=== PATIENT | female | born 1950 | race Caucasian/White ===

== ENCOUNTER 2018-08-13 14:35 | Inpatient (IN) ==
[2018-08-13] MEDS ORDERED: *HR* OxyCODONE Immed Rel 5 MG TABLET PO PRN (20:21)
[2018-08-13] MEDS: Sennosides/Docusate Sodium TABLET PO SCH (21:23)
[2018-08-13] MEDS: *HR* OxyCODONE Immed Rel 5 MG TABLET PO PRN (21:23)
[2018-08-13] MEDS: Gabapentin 300 MG CAPSULE PO SCH (21:23)
[2018-08-14] MEDS: *HR* OxyCODONE Immed Rel 5 MG TABLET PO PRN (05:32)
[2018-08-14 06:06] LABS: Basophils % 0.2 %; Eosinophils # 0.2 K/mcL (0.0-0.6); Hematocrit 24.8 % (35.3-44.9); Hemoglobin 8.5 g/dL (11.5-15.4); Immature Granulocytes % 0.4 % (0-4); Lymphocytes # 0.8 K/mcL (0.6-4.6); Lymphocytes % 15.1 %; Mean Corpuscular HGB Conc 34.3 g/dL (31.6-35.5); Mean Corpuscular Hemoglobin 33.2 pg (28.0-33.3); Mean Corpuscular Volume 96.9 fL (83.0-100.0); Mean Platelet Volume 11.6 fL (9.4-12.4); Monocytes # 0.6 K/mcL (0.0-1.3); Monocytes % 11.3 %; Neutrophils # 3.7 K/mcL (1.6-8.9); Platelet Count 117 K/mcL (140-400); Red Blood Count 2.56 M/mcL (3.82-4.97); Red Cell Distribution Width 12.5 % (11.5-14.5)
[2018-08-14 06:09] LABS: INR 1.1; Prothrombin Time 12.3 Seconds (9.4-12.1)
[2018-08-14 06:11] LABS: Activated Partial Thrombo Time 27.9 Seconds (26.0-36.0)
[2018-08-14 06:20] LABS: BUN/Creatinine Ratio 20 (6-26); Blood Urea Nitrogen 12 mg/dL (8-23); Calcium 8.1 mg/dL (8.6-10.3); Carbon Dioxide 26 mEq/L (23-29); Chloride 104 mEq/L (98-107); Glucose 111 mg/dL (70-105); Osmolality,Calculated 284 (280-300); Potassium 3.6 mEq/L (3.5-5.1); Sodium 137 mEq/L (136-145); eGFR For Non-African Americans > 60 (> 60)
[2018-08-14] MEDS ORDERED: Ondansetron ODT 4 MG TAB.RAPDIS SL PRN (07:56)
--- NOTE | 2018-08-14 09:07 | Internal Med History&Physical ---
Date of Encounter: 08/14/18 Time of Encounter: 09:05 Assessment and Plan (1) Status post knee surgery Current visit: Yes Status: Acute S?P surgery , here for PT/OT wound is stable pain is well controlled . Adjsut pain meds and add meds for constipation stable (2) HTN (hypertension) Current visit: Yes Status: Acute Stable continue meds followup and adjust Qualifiers: Hypertension type: essential hypertension Qualified Code(s): I10 - Essential (primary) hypertension (3) Hypothyroid Current visit: Yes Status: Acute On meds asymptomatic at the present time will order TSH Qualifiers: Hypothyroidism type: unspecified Qualified Code(s): E03.9 - Hypothyroidism , unspecified (4) Nausea & vomiting Current visit: Yes Status: Acute Havng some nausea and few small bouts of vomiting. On Antiemetic prn , she is taking Opioid and is constipated as well . Symptomatic medications followup Qualifiers: Vomiting type: unspecified Vomiting Intractability: non-intractable Qualified Code(s): R11.2 - Nausea with vomiting, unspecified Internal Medicine - H&P: HPI Chief complaint: s/p Rt Knee replacemement Admitted From: Hospital to Hospital Transfer History of present illness: Ms. Vargas is a 68 year old female hx of Hypothyroid, HTN and chronic pain who was admitted for rehab s/p Right Knee surgery. Today this moorings is complaining of Nausea and had few small bouts of vomiting . No fever or chill no chest pain .No complains urinary symptoms . Her pain in her knee is well controlled overall she feels OK expcet for her knee surgery Past Med Surg Social Fam HX - Past Medical History Medical history: GERD, GI bleed, hypertension, thyroid disease Psychiatric history: no psych history - Past Surgical History Surgical History: cholecystectomy, hysterectomy, knee replacement Additional surgical history: GASTRIC BYPASS - Social History Smoking Status: Never smoker Smokeless Tobacco Status: No Alcohol use: none Drug use: none - Family History Son Adopted: [place]: Dale vargas Age: 36 Twin of Family Member: Yes, Fraternal Living Status: Still Living Hx Family Cardiac Disorders: Yes Hx Family Respiratory Disorders: No Hx Family Cancer: No Hx Family GI Disorders: No Hx Family Genitourinary Disorders: No Hx Family Endocrine Disorder: No Hx Family Musculoskeletal Disorders: No Hx Family Neuromuscular Disorders: No Hx Family Neurologic Disorders: No Hx Family HEENT Disorders: No Hx Family Autoimmune Disorders: No Hx Family Reproductive Disorders: No Hx Family Psychosocial Disorders: No Hx Family Medical Disorders: No Internal Medicine - H&P: Meds Gabapentin [Neurontin] 600 mg PO TID 07/08/16 [History] Lansoprazole [Prevacid] 30 mg PO BID 07/08/16 [History] Levothyroxine [Synthroid] 88 mcg PO DAILY 07/08/16 [History] Metoprolol [Lopressor] 50 mg PO DAILY 07/08/16 [History] Potassium Chloride [Klor-Con Sprinkle] 10 meq PO BID 07/08/16 [History] Ranitidine HCl [Zantac] 300 mg PO DAILY 07/08/16 [History] Oxycodone HCl [Roxybond] 5 mg PO Q4H PRN 08/13/18 [History] Oxycodone HCl [Roxybond] 10 mg PO Q4H PRN 08/13/18 [History] Vit Calc,Iron,Folic 1 PO DAILY 08/13/18 [History] Rivaroxaban [Xarelto] 10 mg PO DAILY 08/13/18 [History] Sennosides/Docusate Sodium [Docusate Sodium-Senna Tablet] 1 tab PO BID 08/13/18 [History] 3 Allergy/AdvReac Type Severity Reaction Status Date / Time aspirin [ASA] Allergy Abdominal Verified 08/13/18 19:58 Pain naproxen Allergy Abdominal Verified 08/13/18 19:58 Pain All Systems PM: A 10-system review of systems was performed and is negative for pertinent findings except as documented above in the HPI. - Constitutional Constitutional: no anorexia, no chills, no excessive sweating, no fatigue, no fever(s), no falls, no malaise, no night sweats, no weakness - EENT Eyes: no blurry vision, no discharge, no itchy eyes, no photophobia, no spots in vision Ears: no ear discharge Nose, mouth and throat: no bleeding gums, no dry mouth, no dysphagia, no epistaxis, no facial pain, no hoarseness, no mouth lesions, no odynophagia, no sinus pressure, no sore throat, no throat swelling - Cardiovascular Cardiovascular ROS IM: no chest pain, no claudication, no diaphoresis, no dyspnea, no irregular heart rhythm, no lightheadedness, no orthopnea, no palpitations, no paroxysmal nocturnal dyspnea, no syncope - Respiratory Respiratory: no cough, no dyspnea, no hemoptysis, no dyspnea on exertion, no wheezing, no snoring, no chest congestion, no excessive phlegm production, no change in phlegm color, no pain with cough - Gastrointestinal Gastrointestinal: belching, constipation, nausea, no abdominal pain, no bloating , no change in bowel habits, no cramping, no diarrhea, no dyspepsia, no dysphagia, no excessive flatus, no heartburn, no hematemesis, no loose stools, no melena - Genitourinary Genitourinary: no urinary hesitancy, no urinary incontinence, no urinary urgency , no vaginal discharge - Musculoskeletal Musculoskeletal ROS IM: arthralgias, no muscle cramps, no muscle weakness, no myalgias, no neck pain, no numbness, no stiffness, no tingling - Neurological Neurological ROS: no dizziness, no focal weakness, no radicular pain, no restless legs, no tingling, no tremor(s) - Psychiatric Psychiatric: no homicidal ideation, no suicidal ideation - Constitutional Vitals: Temp Pulse Resp BP Pulse Ox 99.1 F 87 18 138/67 92 08/14/18 07:25 08/14/18 07:25 08/14/18 07:25 08/14/18 07:25 08/14/18 07:25 General appearance: Present: A&O X 3, pleasant, no acute distress, answers questions appropriately. Absent: cachectic Exam: having some Nausea and feels tired - Head Head exam: Present: atraumatic - Eye Eye exam: Present: EOMI, PERRL Pupils: Present: PERRL - Neck Neck exam general surgery: Present: full ROM, supple. Absent: tenderness, nuchal rigidity - Respiratory Respiratory exam: Present: CTAB. Absent: prolonged expiratory phase, rales, respiratory distress, rhonchi, stridor, wheezes, tachypnea - Cardiovascular Cardiovascular exam: Present: RRR, +S1, +S2. Absent: diastolic murmur, gallop, irregular rhythm, JVD - GI/Abdominal GI/Abdominal exam: Present: normal bowel sounds, soft. Absent: distended, firm , guarding, rebound, rigid, tenderness - Extremities Exam Extremities exam: Absent: pedal edema, tenderness, warm Additional comments: s/p surgery right knee - Incison Incision: Present: clean and dry, intact. Absent: draining, red, swollen - Neurological Exam Neurological exam: Present: CN II-XII intact, oriented X3, no focal deficits. Absent: facial droop, speech deficit Internal Med - H&P Results - Labs CBC & Chem 7: 08/14/18 05:35 08/14/18 05:35 Labs: Short CBC 08/14/18 Range/Units 05:35 WBC 5.3 (4.3-11.1) K/mcL Hgb 8.5 L (11.5-15.4) g/dL Hct 24.8 L (35.3-44.9) % Plt Count 117 L (140-400) K/mcL Neutrophils # 3.7 (1.6-8.9) K/mcL BMP 08/14/18 05:35 Sodium 137 Potassium 3.6 Chloride 104 Carbon Dioxide 26 BUN 12 Creatinine 0.61 Glucose 111 H Calcium 8.1 L - VTE Documentation of Mechanical Device: Graduated compression elastic hosiery
[2018-08-14] MEDS: Sennosides/Docusate Sodium TABLET PO SCH ×2 (10:38→20:31)
[2018-08-14] MEDS: Famotidine 20 MG TABLET PO SCH (10:39)
[2018-08-14] MEDS: *HR* Rivaroxaban 10 MG TABLET PO SCH (10:39)
[2018-08-14] MEDS: Gabapentin 300 MG CAPSULE PO SCH ×3 (10:39→20:30)
[2018-08-14] MEDS: Acetaminophen 325 MG TABLET PO PRN (14:10)
[2018-08-15] MEDS: *HR* OxyCODONE Immed Rel 5 MG TABLET PO PRN ×3 (05:30→20:41)
--- NOTE | 2018-08-15 08:28 | Internal Med Progress Note ---
Date of Encounter: 08/15/18 Time of Encounter: 08:26 - Assessment and plan (1) Status post knee surgery Current Visit: Yes Status: Acute Assessment and plan: stable wound healing slowly getting PT (2) HTN (hypertension) Current Visit: Yes Status: Acute Assessment and plan: stable no new change continue to monitor Qualifiers: Hypertension type: essential hypertension Qualified Code(s): I10 - Essential (primary) hypertension (3) Hypothyroid Current Visit: Yes Status: Acute Assessment and plan: stable on meds no new change TSH pending Qualifiers: Hypothyroidism type: unspecified Qualified Code(s): E03.9 - Hypothyroidism , unspecified (4) Nausea & vomiting Current Visit: Yes Status: Acute Assessment and plan: almost resolved able to eat well will continue to follow Qualifiers: Vomiting type: unspecified Vomiting Intractability: non-intractable Qualified Code(s): R11.2 - Nausea with vomiting, unspecified - Subjective Interval history: Followup Slept well her nausea has improved a lot and she feels much better still feels constipated and feels that suppositories usuall help the best no fever or chill . - Constitutional Vitals: Temp Pulse Resp BP Pulse Ox 99.5 F 79 16 114/80 93 08/15/18 06:56 08/15/18 06:56 08/15/18 06:56 08/15/18 06:56 08/15/18 06:56 General appearance: Present: A&O X 3, pleasant, no acute distress, answers questions appropriately. Absent: cachectic - Head Head exam: Present: atraumatic - Eye Eye exam: Present: EOMI, PERRL Pupils: Present: PERRL - Neck Neck exam general surgery: Present: supple. Absent: tenderness, nuchal rigidity - Respiratory Respiratory exam: Present: CTAB. Absent: chest wall tenderness, decreased breath sounds, respiratory distress, rhonchi, stridor, wheezes, tachypnea - Cardiovascular Cardiovascular exam: Present: RRR, +S1, +S2. Absent: clicks, diastolic murmur, irregular rhythm, JVD, systolic murmur, tachycardia - GI/Abdominal GI/Abdominal exam: Present: normal bowel sounds, soft. Absent: distended, guarding, rebound, tenderness, no peritoneal signs - Extremities Exam Extremities exam: Present: pedal edema Additional comments: minimal on the right side no calf tenderness left negative edema - Incison Incision: Present: clean and dry, intact. Absent: red, swollen, erythema Comments: dressing some dried blood otherwise clean - Neurological Exam Neurological exam: Present: alert, CN II-XII intact, oriented X3, no focal deficits. Absent: facial droop, speech deficit Internal Medicine: Result - Labs CBC & Chem 7: 08/14/18 05:35 08/14/18 05:35 - ABG Interpretation ABG results: PT/INR, D-dimer PT 12.3 Seconds (9.4-12.1) H 08/14/18 05:35 - VTE Documentation of Mechanical Device: Graduated compression elastic hosiery Consult Discharge Plan - Plan Referrals: Ligia Jimenez MD [Primary Care Provider] -
[2018-08-15] MEDS ORDERED: Bisacodyl 10 MG RECTAL SUPPOSITORY RC PRN (08:32)
[2018-08-15] MEDS: Gabapentin 300 MG CAPSULE PO SCH ×3 (09:28→20:40)
[2018-08-15] MEDS: *HR* Rivaroxaban 10 MG TABLET PO SCH (09:29)
[2018-08-15] MEDS: Sennosides/Docusate Sodium TABLET PO SCH ×2 (09:29→20:41)
[2018-08-15] MEDS: Famotidine 20 MG TABLET PO SCH (09:30)
[2018-08-16] MEDS: *HR* OxyCODONE Immed Rel 5 MG TABLET PO PRN ×3 (05:59→20:53)
[2018-08-16 07:56] LABS: Basophils % 0.3 %; Eosinophils # 0.2 K/mcL (0.0-0.6); Eosinophils % 3.4 %; Hematocrit 29.1 % (35.3-44.9); Hemoglobin 9.9 g/dL (11.5-15.4); Immature Granulocytes % 0.2 % (0-4); Lymphocytes # 0.7 K/mcL (0.6-4.6); Lymphocytes % 11.2 %; Mean Corpuscular Hemoglobin 33.4 pg (28.0-33.3); Mean Corpuscular Volume 98.3 fL (83.0-100.0); Mean Platelet Volume 10.8 fL (9.4-12.4); Monocytes # 0.6 K/mcL (0.0-1.3); Monocytes % 9.6 %; Neutrophils # 4.4 K/mcL (1.6-8.9); Nucleated Red Blood Cells 0.3 /100 WBC (0); Platelet Count 178 K/mcL (140-400); Red Blood Count 2.96 M/mcL (3.82-4.97); Red Cell Distribution Width 12.8 % (11.5-14.5); Segmented Neutrophils % 75.3 %
[2018-08-16 08:18] LABS: BUN/Creatinine Ratio 18 (6-26); Blood Urea Nitrogen 13 mg/dL (8-23); Calcium 8.6 mg/dL (8.6-10.3); Carbon Dioxide 27 mEq/L (23-29); Chloride 99 mEq/L (98-107); Glucose 112 mg/dL (70-105); Osmolality,Calculated 281 (280-300); Potassium 3.8 mEq/L (3.5-5.1); Sodium 135 mEq/L (136-145); eGFR For Non-African Americans > 60 (> 60)
[2018-08-16] MEDS: Gabapentin 300 MG CAPSULE PO SCH ×3 (08:33→20:51)
[2018-08-16] MEDS: *HR* Rivaroxaban 10 MG TABLET PO SCH (08:33)
[2018-08-16] MEDS: Famotidine 20 MG TABLET PO SCH (08:33)
[2018-08-16] MEDS: Sennosides/Docusate Sodium TABLET PO SCH ×2 (08:34→20:52)
--- NOTE | 2018-08-16 11:56 | Internal Med Progress Note ---
Date of Encounter: 08/16/18 Time of Encounter: 11:54 - Assessment and plan (1) Status post knee surgery Current Visit: Yes Status: Acute Assessment and plan: continue PT and OT . will follow progress. continue current pain regimen. f/ u with ortho as scheduled. (2) Constipation Current Visit: Yes Status: Acute Assessment and plan: will start miralax daily. will monitor for results. Qualifiers: Constipation type: slow transit constipation Qualified Code(s): K59.01 - Slow transit constipation (3) HTN (hypertension) Current Visit: Yes Status: Acute Assessment and plan: controlled with current meds. monitor BP. Qualifiers: Hypertension type: essential hypertension Qualified Code(s): I10 - Essential (primary) hypertension - Time Spent With Patient less than 15 minutes - Subjective Interval history: Participating well with therapy. States pain is controlled with current medication. Hemoglobin stable at 9.9. Wearing immobilizer to right knee per order from surgeon. States bowels have not moved for the past few days. Discussed ordering medication to assist with that. Maintaining appetite and hydration. - Constitutional Vitals: Temp Pulse Resp BP Pulse Ox 100.3 F H 70 18 163/90 97 08/16/18 07:31 08/16/18 07:31 08/16/18 07:31 08/16/18 07:31 08/16/18 07:31 General appearance: Present: cooperative, A&O X 3, pleasant, no acute distress, answers questions appropriately. Absent: cachectic - Head Head exam: Present: atraumatic, normocephalic - Eye Eye exam: Present: PERRL, conjuntiva pink, sclera anicteric Pupils: Present: PERRL - Neck Neck exam general surgery: Present: supple, trachea midline. Absent: lymphadenopathy - Respiratory Respiratory exam: Present: CTAB. Absent: accessory muscle use, rales, rhonchi, wheezes - Cardiovascular Cardiovascular exam: Present: RRR, +S1, +S2. Absent: diastolic murmur, gallop, rubs, systolic murmur - GI/Abdominal GI/Abdominal exam: Present: normal bowel sounds, soft, no peritoneal signs. Absent: distended, tenderness - Extremities Exam Extremities exam: Present: warm, radial pulses palpable and symmetrical. Absent : calf tenderness, cyanotic, pedal edema - Incison Comments: drsg dry and intact, mod amt of edema to surrounding area. - Neurological Exam Neurological exam: Present: CN II-XII intact, oriented X3, no focal deficits. Absent: pronater drift, facial droop, speech deficit - Skin Skin exam: Present: dry, intact Internal Medicine: Result - Labs CBC & Chem 7: 08/16/18 07:53 08/16/18 07:53 Labs: Short CBC 08/16/18 Range/Units 07:53 WBC 5.8 (4.3-11.1) K/mcL Hgb 9.9 L (11.5-15.4) g/dL Hct 29.1 L (35.3-44.9) % Plt Count 178 D (140-400) K/mcL Neutrophils # 4.4 (1.6-8.9) K/mcL BMP 08/16/18 07:53 Sodium 135 L Potassium 3.8 Chloride 99 Carbon Dioxide 27 BUN 13 Creatinine 0.72 Glucose 112 H Calcium 8.6 - ABG Interpretation ABG results: PT/INR, D-dimer PT 12.3 Seconds (9.4-12.1) H 08/14/18 05:35 - VTE Documentation of Mechanical Device: Graduated compression elastic hosiery Consult Discharge Plan - Plan Referrals: Ligia Jimenez MD [Primary Care Provider] - Alexander Lan MD [Non-Partnered Physician] - 08/24/18 9:25 am
[2018-08-17] MEDS: *HR* OxyCODONE Immed Rel 5 MG TABLET PO PRN (05:19)
[2018-08-17] MEDS: Famotidine 20 MG TABLET PO SCH (08:42)
[2018-08-17] MEDS: Gabapentin 300 MG CAPSULE PO SCH ×3 (08:43→20:01)
[2018-08-17] MEDS: Sennosides/Docusate Sodium TABLET PO SCH ×2 (08:43→20:02)
[2018-08-17] MEDS: *HR* Rivaroxaban 10 MG TABLET PO SCH (08:43)
--- NOTE | 2018-08-17 11:09 | Internal Med Progress Note ---
Date of Encounter: 08/17/18 Time of Encounter: 10:57 - Assessment and plan (1) Status post knee surgery Current Visit: Yes Status: Acute Assessment and plan: continue PT and OT . will follow progress. continue current pain regimen. f/ u with ortho as scheduled. (2) Constipation Current Visit: Yes Status: Acute Assessment and plan: miralax daily. will monitor for results. Qualifiers: Constipation type: slow transit constipation Qualified Code(s): K59.01 - Slow transit constipation (3) HTN (hypertension) Current Visit: Yes Status: Acute Assessment and plan: controlled with current meds. monitor BP. Qualifiers: Hypertension type: essential hypertension Qualified Code(s): I10 - Essential (primary) hypertension - Time Spent With Patient less than 15 minutes - Subjective Interval history: Participating well with therapy. States pain is controlled with current medication. Wearing immobilizer to right knee per order from surgeon. still has not had a bowel movement. taking miralax. Maintaining appetite and hydration. - Constitutional Vitals: Temp Pulse Resp BP Pulse Ox 98.3 F 70 17 138/78 96 08/17/18 07:26 08/17/18 07:26 08/17/18 07:26 08/17/18 07:36 08/17/18 07:26 General appearance: Present: cooperative, A&O X 3, pleasant, no acute distress, answers questions appropriately. Absent: cachectic - Head Head exam: Present: atraumatic, normocephalic - Eye Eye exam: Present: PERRL, conjuntiva pink, sclera anicteric Pupils: Present: PERRL - Neck Neck exam general surgery: Present: supple, trachea midline. Absent: lymphadenopathy - Respiratory Respiratory exam: Present: CTAB. Absent: accessory muscle use, rales, rhonchi, wheezes - Cardiovascular Cardiovascular exam: Present: RRR, +S1, +S2. Absent: diastolic murmur, gallop, rubs, systolic murmur - GI/Abdominal GI/Abdominal exam: Present: normal bowel sounds, soft, no peritoneal signs. Absent: distended, tenderness - Extremities Exam Extremities exam: Present: warm, radial pulses palpable and symmetrical. Absent : calf tenderness, cyanotic, pedal edema - Incison Comments: right knee incision, drsg dry and intact. - Neurological Exam Neurological exam: Present: CN II-XII intact, oriented X3, no focal deficits. Absent: pronater drift, facial droop, speech deficit - Skin Skin exam: Present: dry, intact Internal Medicine: Result - Labs CBC & Chem 7: 08/16/18 07:53 08/16/18 07:53 - ABG Interpretation ABG results: PT/INR, D-dimer PT 12.3 Seconds (9.4-12.1) H 08/14/18 05:35 - VTE Documentation of Mechanical Device: Graduated compression elastic hosiery Consult Discharge Plan - Plan Referrals: Ligia Jimenez MD [Primary Care Provider] - Alexander Lan MD [Non-Partnered Physician] - 08/24/18 9:25 am
[2018-08-17] MEDS: Acetaminophen 325 MG TABLET PO PRN ×2 (12:48→23:14)
[2018-08-17] MEDS ORDERED: traMADol 50 MG TABLET PO PRN (13:28)
[2018-08-17 18:20] LABS: Bilirubin,Urine Negative (Negative); Blood,Urine Negative (Negative); Clarity,Urine Slightly Cloudy (Clear); Glucose,Urine (UA) 100 mg/dL (Normal); Ketones,Urine Negative (Negative); Leukocyte Esterase,Urine Negative (Negative); Nitrite,Urine Negative (Negative); Protein,Urine Negative (Neg-Trace); Urobilinogen,Urine >=8.0 mg/dL (Normal)
[2018-08-17 18:25] LABS: Amorphous Sediment,Urine Few (Few); Color,Urine Yellow (Yellow); Squamous Epithelial Cell,Urine Few per lpf (None-Few)
[2018-08-18] MEDS: *HR* OxyCODONE Immed Rel 5 MG TABLET PO PRN ×3 (05:52→22:12)
[2018-08-18] MEDS: *HR* Rivaroxaban 10 MG TABLET PO SCH (08:10)
[2018-08-18] MEDS: Famotidine 20 MG TABLET PO SCH ×2 (08:10→15:28)
[2018-08-18] MEDS: Gabapentin 300 MG CAPSULE PO SCH ×3 (08:10→22:13)
[2018-08-18] MEDS: Sennosides/Docusate Sodium TABLET PO SCH ×2 (08:10→22:12)
--- NOTE | 2018-08-18 10:03 | Psychological Evaluation ---
Date of Encounter: 08/18/18 Time of Encounter: 09:30 History of Present Illness History of present illness: Ms. Wong is a 68 year old female status post Right knee replacement surgery. PMH gastric bypass, HTN, hyothyroid, and chronic pasin. recently complained of feeling "goofy" Past Medical History - Psychiatric History Psychiatric history: Reports: no psych history Additional Psychiatric History: Currently denies any SI/HI. Affect appropriate and mood "good" stating "I love people". Home Medications and Allergies Gabapentin [Neurontin] 600 mg PO TID 07/08/16 [History] Lansoprazole [Prevacid] 30 mg PO BID 07/08/16 [History] Levothyroxine [Synthroid] 88 mcg PO DAILY 07/08/16 [History] Metoprolol [Lopressor] 50 mg PO DAILY 07/08/16 [History] Potassium Chloride [Klor-Con Sprinkle] 10 meq PO BID 07/08/16 [History] Ranitidine HCl [Zantac] 300 mg PO DAILY 07/08/16 [History] Oxycodone HCl [Roxybond] 5 mg PO Q4H PRN 08/13/18 [History] Oxycodone HCl [Roxybond] 10 mg PO Q4H PRN 08/13/18 [History] Vit Calc,Iron,Folic 1 PO DAILY 08/13/18 [History] Rivaroxaban [Xarelto] 10 mg PO DAILY 08/13/18 [History] Sennosides/Docusate Sodium [Docusate Sodium-Senna Tablet] 1 tab PO BID 08/13/18 [History] 3 Allergy/AdvReac Type Severity Reaction Status Date / Time aspirin [ASA] Allergy Abdominal Verified 08/13/18 19:58 Pain naproxen Allergy Abdominal Verified 08/13/18 19:58 Pain Social History - Social History Social History: Pt is 45 years with 3 adult cildren and 7 grandchildren. 3 living siblings. 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 Enjoys traveling. On [employer]. Has Masters degree. - Tobacco Use Smoking Status: Never smoker - Alcohol Use Alcohol Use: none - Drug Use Drug Use: none Cognitive/Emotional Assessment - Cognitive Ability Language Function Ability: No Deficits Noted Level of Alertness: Alert Orientation: Person, Place, Time, Name, Age, Date of , Day of Month, Day of Week, Month, Year Ability to Follow Directions: Good Speech Pattern: Normal rate, Appropriate Thought Process: Intact, Logical, Goal Oriented Additional Findings: Pt able to recall 3/3 words after repetition and 3/3 after 5 mins. Digits forward 6, backward 4. Able to spell WORLD forward but not backward; knew Pres but not previous pres or gov.; difficulty with serial 7 and 3's; and unable to calculate 20.00-14.45. - Emotional Status Mood Description: Euthymic/stable Affect Description: Euthymic/stable, Full range Coping Ability: Verbalizes positive coping skills Assessment & Plan - Diagnosis (1) Other specified mental disorders due to known physiological condition - Prognosis Prognosis: Good - Treatment Plan Treatment Plan/Recommendations: Pt will self monitor attention and concentration as weaned off medication. Currently displays difficulty with sustained and divided attention. If continues with attentional difficulties will contact provider for additional treatment. Procedures - Intervention Interventions: Other - Participants Therapy Participant: Patient - Session Time Session Start Time: 09:30 Session Stop Time: 10:00
--- NOTE | 2018-08-18 10:38 | Internal Med Progress Note ---
Date of Encounter: 08/18/18 Time of Encounter: 10:36 - Assessment and plan (1) Status post knee surgery Current Visit: Yes Status: Acute Assessment and plan: No acute issues. Right knee surgical site appears healthy and healing well. Patient continues to mobilize with walker. Right leg immobilizer remains in place. Patient does have slight swelling noted to the right knee and right thigh. Venous Doppler scan is pending today. Pain has been well-controlled with current medications. Patient yesterday felt that she may have been overly sedated with her pain medicine and had felt, what she called "loopy". Patient' s pain medication was reduced. Patient also stated that she has only taken her gabapentin once daily at home. Currently patient is getting 600 mg 3 times a day. For now we will decrease her to 300 mg 3 times a day and evaluate if that improves her mentation. (2) HTN (hypertension) Current Visit: Yes Status: Chronic Assessment and plan: Vital signs stable. We will continue with current medications. Qualifiers: Hypertension type: essential hypertension Qualified Code(s): I10 - Essential (primary) hypertension (3) Other specified mental disorders due to known physiological condition Current Visit: Yes Status: Acute Assessment and plan: Psychiatry was consulted due to patient's confusion yesterday. Likely secondary to pain medications, as no psychological history has been provided. Patient today appears very appropriate during conversation with no neurological deficits noted. He remains relaxed and states that she believes that yesterday she had too much pain medication. Patient's pain medication has been reduced. Patient states only takes her gabapentin once daily at home and that has been reduced and dosing to 300 mg 3 times a day. Patient was evaluated by psychiatry with recommendations pending. - Time Spent With Patient less than 15 minutes - Subjective Interval history: Patient appears relaxed and currently denies any discomforts or shortness of breath. Patient states that she feels much better today and that she believes yesterday she may have had too much pain medicine which made her feel loopy. Patient also states that at home she only takes her gabapentin once a day at at bedtime and here she has been taken at 3 times daily. Patient does have complaints of constipation stating she has not had a bowel movement and 5 days. States that prior to hospitalization that she was very regular with her BMs. Denies any abdominal cramping or discomforts - Constitutional Vitals: Temp Pulse Resp BP Pulse Ox 97.8 F 78 18 146/78 97 08/18/18 07:22 08/18/18 07:22 08/18/18 07:22 08/18/18 07:22 08/18/18 07:22 General appearance: Present: cooperative, A&O X 3, pleasant, no acute distress, answers questions appropriately. Absent: cachectic - Head Head exam: Present: atraumatic, normocephalic - Eye Eye exam: Present: PERRL, conjuntiva pink, sclera anicteric Pupils: Present: PERRL - Neck Neck exam general surgery: Present: supple, trachea midline. Absent: lymphadenopathy - Respiratory Respiratory exam: Present: CTAB. Absent: accessory muscle use, rales, rhonchi, wheezes - Cardiovascular Cardiovascular exam: Present: RRR, +S1, +S2. Absent: diastolic murmur, gallop, rubs, systolic murmur - GI/Abdominal GI/Abdominal exam: Present: normal bowel sounds, soft, no peritoneal signs. Absent: distended, tenderness - Extremities Exam Extremities exam: Present: warm, radial pulses palpable and symmetrical. Absent : calf tenderness, cyanotic, pedal edema Additional comments: Right knee surgical incision appears dry and intact. Dressings clean and dry with leg immobilizer in place. Noted slight amount of edema to right knee and thigh. - Neurological Exam Neurological exam: Present: CN II-XII intact, oriented X3, no focal deficits. Absent: pronater drift, facial droop, speech deficit - Skin Skin exam: Present: dry, intact Internal Medicine: Result - Labs CBC & Chem 7: 08/16/18 07:53 08/16/18 07:53 Labs: Urine 08/17/18 Range/Units 12:15 Urine Color Yellow (Yellow) Urine Clarity Slightly Cloudy A (Clear) Urine pH 7.0 (5.0-8.0) pH Units Ur Specific [place] 1.010 (1.010-1.025) Urine Protein Negative (Neg-Trace) mg/dL Urine Glucose (UA) 100 H (Normal) mg/dL - ABG Interpretation ABG results: PT/INR, D-dimer PT 12.3 Seconds (9.4-12.1) H 08/14/18 05:35 - VTE Documentation of Mechanical Device: Graduated compression elastic hosiery Consult Discharge Plan - Plan Referrals: Ligia Jimenez MD [Primary Care Provider] - Alexander Lan MD [Non-Partnered Physician] - 08/24/18 9:25 am
[2018-08-18] MEDS ORDERED: Bisacodyl 10 MG RECTAL SUPPOSITORY RC PRN (20:30)
[2018-08-19] MEDS: *HR* OxyCODONE Immed Rel 5 MG TABLET PO PRN ×3 (05:23→20:31)
[2018-08-19] MEDS: *HR* Rivaroxaban 10 MG TABLET PO SCH (08:00)
[2018-08-19] MEDS: Famotidine 20 MG TABLET PO SCH ×2 (08:00→16:16)
[2018-08-19] MEDS: Gabapentin 300 MG CAPSULE PO SCH ×3 (08:00→20:31)
[2018-08-19] MEDS: Sennosides/Docusate Sodium TABLET PO SCH ×2 (08:00→20:31)
--- NOTE | 2018-08-19 10:59 | Internal Med Progress Note ---
Date of Encounter: 08/19/18 Time of Encounter: 10:56 - Assessment and plan (1) Status post knee surgery Current Visit: Yes Status: Acute Assessment and plan: No acute issues. Right knee surgical site appears healthy and healing well. Right leg immobilizer remains in place. Patient does have slight swelling noted to the right knee and right thigh, with venous Doppler showing no DVT. Pain has been well-controlled with current medications. Patient observed ambulating in [place] and appears to be progressing well with physical therapy. (2) HTN (hypertension) Current Visit: Yes Status: Chronic Assessment and plan: Vital signs stable. We will continue with current medications. Qualifiers: Hypertension type: essential hypertension Qualified Code(s): I10 - Essential (primary) hypertension - Time Spent With Patient less than 15 minutes - Subjective Interval history: Patient appears relaxed and currently denies any discomforts or shortness of breath. Patient states that she feels much better today and that she believes that several days ago, that she may have had too much pain medicine which made her feel loopy. Patient states that her constipation has been resolving and that she had a BM last evening. She believes physical therapy has been progressing well. States that her pain has been well-controlled with her current medications. Patient had a venous Doppler to the right leg that was performed yesterday which showed no DVT. - Constitutional Vitals: Temp Pulse Resp BP Pulse Ox 98.5 F 76 18 144/76 95 08/19/18 06:33 08/19/18 06:33 08/19/18 06:33 08/19/18 06:33 08/19/18 06:33 General appearance: Present: cooperative, A&O X 3, pleasant, no acute distress, answers questions appropriately. Absent: cachectic - Head Head exam: Present: atraumatic, normocephalic - Eye Eye exam: Present: PERRL, conjuntiva pink, sclera anicteric Pupils: Present: PERRL - Neck Neck exam general surgery: Present: supple, trachea midline. Absent: lymphadenopathy - Respiratory Respiratory exam: Present: CTAB. Absent: accessory muscle use, rales, rhonchi, wheezes - Cardiovascular Cardiovascular exam: Present: RRR, +S1, +S2. Absent: diastolic murmur, gallop, rubs, systolic murmur - GI/Abdominal GI/Abdominal exam: Present: normal bowel sounds, soft, no peritoneal signs. Absent: distended, tenderness - Extremities Exam Extremities exam: Present: warm, radial pulses palpable and symmetrical. Absent : calf tenderness, cyanotic, pedal edema Additional comments: Right knee surgical incision remains covered with dressing which is dry and intact. Patient continues to have slight edema to right knee and thigh. Immobilizer remains in place - Neurological Exam Neurological exam: Present: CN II-XII intact, oriented X3, no focal deficits. Absent: pronater drift, facial droop, speech deficit - Skin Skin exam: Present: dry, intact Internal Medicine: Result - Labs CBC & Chem 7: 08/16/18 07:53 08/16/18 07:53 - ABG Interpretation ABG results: PT/INR, D-dimer PT 12.3 Seconds (9.4-12.1) H 08/14/18 05:35 - VTE Documentation of Mechanical Device: Graduated compression elastic hosiery Consult Discharge Plan - Plan Referrals: Ligia Jimenez MD [Primary Care Provider] - Alexander Lan MD [Non-Partnered Physician] - 08/24/18 9:25 am
[2018-08-20] MEDS: *HR* OxyCODONE Immed Rel 5 MG TABLET PO PRN ×3 (03:33→12:54)
[2018-08-20 06:34] LABS: Basophils % 0.5 %; Eosinophils # 0.2 K/mcL (0.0-0.6); Eosinophils % 5.3 %; Hematocrit 25.7 % (35.3-44.9); Immature Granulocytes % 0.5 % (0-4); Lymphocytes # 1.2 K/mcL (0.6-4.6); Mean Corpuscular HGB Conc 32.7 g/dL (31.6-35.5); Mean Corpuscular Hemoglobin 32.3 pg (28.0-33.3); Mean Corpuscular Volume 98.8 fL (83.0-100.0); Mean Platelet Volume 10.5 fL (9.4-12.4); Monocytes # 0.5 K/mcL (0.0-1.3); Monocytes % 13.6 %; Platelet Count 248 K/mcL (140-400); Red Cell Distribution Width 13.4 % (11.5-14.5); Segmented Neutrophils % 50.1 %
[2018-08-20 07:02] LABS: Hemoglobin 8.4 g/dL (11.5-15.4)
[2018-08-20] MEDS: Famotidine 20 MG TABLET PO SCH (07:44)
[2018-08-20] MEDS: Sennosides/Docusate Sodium TABLET PO SCH (07:44)
[2018-08-20] MEDS: Gabapentin 300 MG CAPSULE PO SCH (07:44)
[2018-08-20] MEDS: *HR* Rivaroxaban 10 MG TABLET PO SCH (07:44)
[2018-08-20 09:15] VITALS: BP 148/77
--- NOTE | 2018-08-20 10:00 | Discharge Summary ---
Orders not resulted at time of discharge: Pending orders 08/23/18 04:00 Basic Metabolic Panel MO Complete Blood Count [HEME] MO 08/30/18 04:00 Basic Metabolic Panel MO Complete Blood Count [HEME] MO 09/06/18 04:00 Basic Metabolic Panel MO Complete Blood Count [HEME] MO 09/13/18 04:00 Basic Metabolic Panel MO Complete Blood Count [HEME] MO 09/20/18 04:00 Basic Metabolic Panel MO Complete Blood Count [HEME] MO 09/27/18 04:00 Basic Metabolic Panel MO Complete Blood Count [HEME] MO 10/04/18 04:00 Basic Metabolic Panel MO Complete Blood Count [HEME] MO 10/11/18 04:00 Basic Metabolic Panel MO Complete Blood Count [HEME] MO 10/18/18 04:00 Basic Metabolic Panel MO Complete Blood Count [HEME] MO Date of Encounter: 08/20/18 Time of Encounter: 09:58 - Discharge Diagnosis (1) Status post knee surgery Priority: Primary Status: Acute Comments: Patient was admitted this facility for rehabilitation after surgery to her right knee. Right knee surgical incision remains healthy and intact. Patient continues to have slight swelling to right knee and thigh. Venous Doppler was performed which shows no DVT. Patient has progressed well with physical therapy and was observed ambulating in halls with these or walker. Pain has been well-controlled with current oral medications. Patient did have one incident were after taking a higher dose of pain medicine she became somewhat confused. Patient was evaluated by psychiatry with no new treatment modes ordered. Patient's not had any recurrence of confusion after reduction of current medications. Patient will be discharged to home and will continue physical therapy as outpatient at this facility. Patient is recommended to continue with her follow-up next week with orthopedic surgeon and is to continue follow-up with PCP. Patient is to restart her home medications and will be given a prescription for pain medication at discharge (2) HTN (hypertension) Priority: Secondary Status: Chronic Comments: No acute issues during her stay at this facility. Vital signs stable. Patient is to continue with home medications after discharge and follow-up with PCP. Qualifiers: Hypertension type: essential hypertension Qualified Code(s): I10 - Essential (primary) hypertension Hospital course: Ms. Wong is a 68 year old female who is admitted to this facility for rehabilitation after experiencing surgery to her right knee. [facility] and was transferred to this facility where she progressed well with physical therapy during her stay. Patient's right knee surgical incision has remained dry and intact and appears healthy. Patient has had moderate edema to her right knee and thigh and had a venous Doppler performed which showed no acute DVT. Patient has had good pain control with current medications but did have some trouble once the dosing was higher, showing some confusion. No recurrence of confusion was noted after reduction of pain medication dosing. She reportedly has progressed well with physical therapy and has passed climbing stairs. Patient has been observed ambulating in hallway with walker without difficulty. Patient will continue with physical therapy as an outpatient at this facility. Patient is recommended to continue follow-up next week with a scheduled appointment with orthopedics and he follow- up with her PCP in 2 weeks. Patient will be given a prescription for pain medication at time of discharge. Patient is recommended to continue with her home medications Discharge discussed with: patient Time spent discussing smoking cessation with patient: 3 to 10 minutes - Time Spent with Patient Total time spent providing and/or coordinating discharge services: Less than 30 minutes - Discharge Medications Home Medications: Gabapentin [Neurontin] 600 mg PO TID 07/08/16 [History] Lansoprazole [Prevacid] 30 mg PO BID 07/08/16 [History] Levothyroxine [Synthroid] 88 mcg PO DAILY 07/08/16 [History] Metoprolol [Lopressor] 50 mg PO DAILY 07/08/16 [History] Potassium Chloride [Klor-Con Sprinkle] 10 meq PO BID 07/08/16 [History] Ranitidine HCl [Zantac] 300 mg PO DAILY 07/08/16 [History] Oxycodone HCl [Roxybond] 5 mg PO Q4H PRN 08/13/18 [History] Oxycodone HCl [Roxybond] 10 mg PO Q4H PRN 08/13/18 [History] Vit Calc,Iron,Folic 1 PO DAILY 08/13/18 [History] Rivaroxaban [Xarelto] 10 mg PO DAILY 08/13/18 [History] Sennosides/Docusate Sodium [Docusate Sodium-Senna Tablet] 1 tab PO BID 08/13/18 [History] Allergies/Adverse Reactions: 3 Allergy/AdvReac Type Severity Reaction Status Date / Time aspirin [ASA] Allergy Abdominal Verified 08/13/18 19:58 Pain naproxen Allergy Abdominal Verified 08/13/18 19:58 Pain Date of admission: 08/13/18 19:30 Primary care physician: Ligia Jimenez MD Consults: 08/13/18 20:14 Consult to Occupational Therapy [CONS] Routine Comment: Evaluate, develop and implement POC Reason for Consult: right knee Does patient have active BEDREST order?: No Is patient medically & hemodynamically stable?: Yes Patient assessed for mobility or mobilized this visit?: No Consult to Physical Therapy [CONS] Routine Comment: Evaluate, develop and implement POC Reason for Consult: right knee Does patient have active BEDREST order?: No Is patient medically & hemodynamically stable?: Yes Patient assessed for mobility or mobilized this visit?: No Consult to Recreational Therapy [CONS] Routine Comment: Evaluate, develop and implement POC Consult to Communication Lecturer [CONS] Routine Reason for SW Consult: discharge planning s/p right knee 08/18/18 08:20 Consult to Psychology [CONS] Routine Consulting Provider: Elyse Luciano Reason for Consult: eval per therapy team Call Completed: No Discharging clinician: Jonathan Carter - Constitutional Vitals: Temp Pulse Resp BP Pulse Ox 98.4 F 68 18 148/77 98 08/20/18 06:00 08/20/18 06:00 08/20/18 06:00 08/20/18 06:00 08/20/18 06:00 General appearance: Present: cooperative, A&O X 3, pleasant, no acute distress, answers questions appropriately. Absent: cachectic - Head Head exam: Present: atraumatic, normocephalic - Eye Eye exam: Present: PERRL, conjuntiva pink, sclera anicteric Pupils: Present: PERRL - Neck Neck exam general surgery: Present: supple, trachea midline. Absent: lymphadenopathy - Respiratory Respiratory exam: Present: CTAB. Absent: accessory muscle use, rales, rhonchi, wheezes - Cardiovascular Cardiovascular exam: Present: RRR, +S1, +S2. Absent: diastolic murmur, gallop, rubs, systolic murmur - GI/Abdominal GI/Abdominal exam: Present: normal bowel sounds, soft, no peritoneal signs. Absent: distended, tenderness - Extremities Exam Extremities exam: Present: warm, radial pulses palpable and symmetrical. Absent : calf tenderness, cyanotic, pedal edema Additional comments: Right knee and thigh continues with slight edema. Right knee midline surgical incision appears healthy and intact. No erythema - Neurological Exam Neurological exam: Present: CN II-XII intact, oriented X3, no focal deficits. Absent: pronater drift, facial droop, speech deficit - Skin Skin exam: Present: dry, intact - Patient Status Disposition: Home, Self-Care Condition: Good Functional capacity at discharge: uses cane/walker Overall status at discharge: patient is progressing back to baseline - Discharge Instructions Follow Up With: Ligia Jimenez MD [Primary Care Provider] - Alexander Lan MD [Non-Partnered Physician] - 08/24/18 9:25 am - Diet and Activity Activity: ambulate only with your walker, as per physical therapy Diet: advance to your usual diet - VTE Documentation of Mechanical Device: Graduated compression elastic hosiery
== END 2018-08-20 14:15 | disposition home or self-care (01) | DRG 561 ==
LOC: INPGRE 19:30